=== PATIENT | female | born 1995 | race African-American/Black ===

== ENCOUNTER 2024-05-19 18:29 | Emergency (ER) | payer SELFPAY ==
[2024-05-19 19:02] VITALS: BP 132/64; PULSE 89; RESP 20; TEMP 98.6; BMI 31.1
[2024-05-19] MEDS ORDERED: DEXAMETHASONE SOD PHOSPHATE 10 MG/1 ML VIAL ONE (19:06)
[2024-05-19] MEDS ORDERED: FAMOTIDINE 20 MG/50 ML IVPB 20 MG/50 ML MG IVPB ONE (19:07)
[2024-05-19] MEDS: DEXAMETHASONE SOD PHOSPHATE 20 MG/5 ML VIAL IVPB STA (19:34)
[2024-05-19] MEDS: FAMOTIDINE 20 MG/50 ML IVPB 20 MG/50 ML MG IVPB ONE (19:35)
[2024-05-19] MEDS ORDERED: ONDANSETRON *ODT* 4 MG TABLET ONE (19:35)
[2024-05-19] MEDS: ONDANSETRON *ODT* 4 MG TABLET SL ONE (19:36)
== END 2024-05-19 20:55 | disposition home or self-care (01) ==
LOC: JER 18:29
PROC: 3E033GC Introduction of Other Therapeutic Substance into Peripheral Vein, Percutaneous Approach (ICD-10-PCS; principal; 2024-05-19)
PROC: 3E033GC Introduction of Other Therapeutic Substance into Peripheral Vein, Percutaneous Approach (ICD-10-PCS; 2024-05-19)
PROC: 3E033GC Introduction of Other Therapeutic Substance into Peripheral Vein, Percutaneous Approach (ICD-10-PCS; 2024-05-19)
DX: L50.0 Allergic urticaria (principal); T78.1XXA Other adverse food reactions, not elsewhere classified, initial encounter
CPT/HCPCS: 99284-25; Q0162